=== PATIENT | male | born 1965 | race Caucasian/White ===

== ENCOUNTER 2017-07-10 20:14 | Emergency (ER) | payer OTHER ==
[~2017-07-10] VITALS: Ht 170.2 cm; Wt 90.7 kg
[2017-07-10 21:05] LABS: Basophils # (auto) 0.2 uL; CONDITION Y; Eosinophils # (auto) 0.3 uL; Hematocrit 43.2 % (41.0-53.0); Hemoglobin 14.7 g/dL (13.5-17.5); Lymphocytes # (auto) 2.8 uL; Lymphocytes % (auto) 33.2 % (10.0-50.0); Mean Corpuscular Hemoglobin 33.7 pg (28.0-32.0); Mean Corpuscular Volume 99.1 fL (80.0-100.0); Monocytes # (auto) 1.1 uL; Monocytes % (auto) 13.2 % (0.0-12.0); Neutrophils # (auto) 4.1 uL; Neutrophils % (auto) 48.6 % (37.0-80.0); Platelet Count (auto) 230 10^3/uL (140-450); Red Cell Distribution Width 14.3 % (11.6-16.0); White Blood Cell 8.4 10^3/uL (4.4-10.8)
[2017-07-10 21:22] LABS: BUN/Creatinine Ratio 13.2; Magnesium 2.2 mg/dL (1.6-2.6); Potassium 3.4 mmol/L (3.5-5.1)
[2017-07-10 21:25] LABS: Bilirubin, Total 0.6 mg/dL (0.2-1.0); Total Protein 7.6 g/dL (6.4-8.2)
[2017-07-10 21:31] LABS: B-Type Natriuretic Peptide 112.98 pg/mL (0-100); Temperature: 23.3 C (20.0-25.0)
[2017-07-11] MEDS ORDERED: SODIUM CHLORIDE 0.9% 1,000 ML IV ONE (00:45)
[2017-07-11] MEDS ORDERED: THIAMINE HCL 100 MG/ML 2ML VIAL IV ONE (00:45)
[2017-07-11] MEDS ORDERED: cefTRIAXone 1GM/50ML D5W 50 ML IV ONE (00:45)
[2017-07-11] MEDS ORDERED: TETANUS-DIPTH-ACEL PERTUSSIS 0.5ML SYRG IM ONE (00:45)
[2017-07-11 02:13] VITALS: BP 144/91
[2017-07-11 04:24] LABS: Urine RBC None Seen /hpf (0 - 3)
[2017-07-11 04:39] LABS: Urine Bilirubin Negative (Negative); Urine Blood Negative /uL (Negative); Urine Color Yellow (Yellow); Urine Glucose Normal (Normal); Urine Ketone Negative (Negative); Urine Nitrite Negative (Negative); Urine Urobilinogen Normal (Negative)
== END 2017-07-11 04:25 | disposition home or self-care (01) ==
LOC: ER 20:14 → EDBD 20:14 → ER 07-11 04:25
DX: S00.83XA Contusion of other part of head, initial encounter (principal); G92 Toxic encephalopathy; F10.129 Alcohol abuse with intoxication, unspecified; F17.210 Nicotine dependence, cigarettes, uncomplicated; I11.0 Hypertensive heart disease with heart failure; I50.9 Heart failure, unspecified; Z23 Encounter for immunization; W20.8XXA Other cause of strike by thrown, projected or falling object, initial encounter; Y93.89 Activity, other specified; Y99.8 Other external cause status; Y92.89 Other specified places as the place of occurrence of the external cause
CPT/HCPCS: 36415; 70450; 70486; 80053; 80320; 81001; 83735; 83880; 85025; 90471; 90715; 93005; 96365; 96375; 99285; J0696; J3411; J7030

== ENCOUNTER 2017-11-11 14:50 | Inpatient (IN) | payer OTHER ==
[~2017-11-11] VITALS: Ht 170.2 cm; Wt 102.6 kg
[2017-11-11 16:40] LABS: Basophils # (auto) 0.1 uL; Eosinophils # (auto) 0.3 uL; Monocytes # (auto) 0.9 uL
[2017-11-11 16:41] LABS: Eosinophils % (auto) 3.4 % (0.0-7.0); Hematocrit 37.6 % (41.0-53.0); Lymphocytes % (auto) 24.7 % (10.0-50.0); Mean Corpuscular Hemoglobin 35.4 pg (28.0-32.0); Mean Corpuscular Hgb Conc. 34.7 g/dL (32.0-36.0); Monocytes % (auto) 10.9 % (0.0-12.0); Neutrophils # (auto) 4.8 uL; Nucleated Red Blood Cells % 0.1 %; Platelet Count (auto) 190 10^3/uL (140-450); Red Blood Cells 3.68 10^6/uL (4.5-5.90); Red Cell Distribution Width 13.4 % (11.8-14.3)
[2017-11-11 17:12] LABS: Alanine Aminotransferase 90 U/L (16-61); Albumin 3.3 g/dL (3.4-5.0); Alkaline Phosphatase 66 U/L (45-117); Anion Gap 10 (5-15); Aspartate Aminotransferase 55 U/L (15-37); BUN/Creatinine Ratio 17.9; Bilirubin, Total 0.6 mg/dL (0.2-1.0); Blood Urea Nitrogen 12 mg/dL (7-18); Calcium 8.1 mg/dL (8.5-10.1); Carbon Dioxide 23 mmol/L (21-32); Chloride 101 mmol/L (98-107); GFR African American 160 mL/min; GFR Non-African American 132 mL/min; Glucose 103 mg/dL (74-106); Magnesium 2.2 mg/dL (1.6-2.6); Sodium 134 mmol/L (136-145); Total Protein 7.6 g/dL (6.4-8.2)
[2017-11-12] MEDS: SODIUM CHLORIDE 0.9% 1,000 ML IV SCH ×3 (15:42→23:42)
[2017-11-12] MEDS ORDERED: MORPHINE SULFATE 4 MG/ML SYR/VIAL IV ONE (15:45)
[2017-11-12] MEDS ORDERED: ONDANSETRON HCL 4 MG/2 ML VIAL IV PRN (15:45)
[2017-11-12] MEDS ORDERED: FUROSEMIDE 20 MG TAB PO ONE (16:30)
[2017-11-12] MEDS ORDERED: CARVEDILOL 12.5 MG TAB PO ONE (16:30)
[2017-11-12 17:44] VITALS: BP 137/87
[2017-11-12] MEDS ORDERED: CARV12.544 PO (18:56)
[2017-11-12] MEDS ORDERED: VALS40TA2 PO (18:56)
[2017-11-12] MEDS ORDERED: FURO40TA4 PO (18:56)
[2017-11-12] MEDS ORDERED: SPIR25TA89 PO (18:56)
[2017-11-12 22:04] VITALS: BP 123/74
[2017-11-13] VITALS (8 sets, daily range): BP systolic 98–128; BP diastolic 66–80
[2017-11-13] MEDS: MORPHINE SULFATE 4 MG/ML SYR/VIAL IV PRN ×3 (05:55→19:02)
[2017-11-13 06:45] LABS: Eosinophils # (auto) 0.2 uL; Mean Corpuscular Volume 102.4 fL (80.0-100.0); Monocytes # (auto) 1.4 uL; Red Cell Distribution Width 13.3 % (11.8-14.3)
[2017-11-13 06:50] LABS: Basophils # (auto) 0.1 uL; Basophils % (auto) 0.7 % (0.0-2.0); Eosinophils % (auto) 2.7 % (0.0-7.0); Hematocrit 35.5 % (41.0-53.0); Hemoglobin 12.5 g/dL (13.5-17.5); Lymphocytes # (auto) 1.4 uL; Lymphocytes % (auto) 17.1 % (10.0-50.0); Mean Corpuscular Hemoglobin 36.2 pg (28.0-32.0); Mean Corpuscular Hgb Conc. 35.3 g/dL (32.0-36.0); Monocytes % (auto) 16.4 % (0.0-12.0); Neutrophils # (auto) 5.3 uL; Neutrophils % (auto) 63.1 % (37.0-80.0); Platelet Count (auto) 182 10^3/uL (140-450); Red Blood Cells 3.47 10^6/uL (4.5-5.90); White Blood Cell 8.4 10^3/uL (4.4-10.8)
[2017-11-13 07:17] LABS: Albumin 3.2 g/dL (3.4-5.0); BUN/Creatinine Ratio 14.5; Bilirubin, Total 1.8 mg/dL (0.2-1.0); Calcium 8.7 mg/dL (8.5-10.1); Potassium 3.7 mmol/L (3.5-5.1); Total Protein 7.5 g/dL (6.4-8.2)
[2017-11-13] MEDS: VALSARTAN 80 MG TAB PO SCH (10:16)
[2017-11-13] MEDS: FUROSEMIDE 20 MG TAB PO SCH (10:16)
[2017-11-13] MEDS: CARVEDILOL 12.5 MG TAB PO SCH ×2 (10:17→22:10)
[2017-11-13] MEDS: SPIRONOLACTONE 25 MG TAB PO SCH (10:17)
[2017-11-14 04:50] VITALS: BP 120/61
[2017-11-14] MEDS: MORPHINE SULFATE 4 MG/ML SYR/VIAL IV PRN ×3 (05:32→18:22)
[2017-11-14 09:00] VITALS: BP 101/72
[2017-11-14] MEDS: SPIRONOLACTONE 25 MG TAB PO SCH (09:51)
[2017-11-14] MEDS: FUROSEMIDE 20 MG TAB PO SCH (09:52)
[2017-11-14] MEDS: CARVEDILOL 12.5 MG TAB PO SCH ×2 (09:52→21:34)
[2017-11-14] MEDS: VALSARTAN 80 MG TAB PO SCH (09:52)
[2017-11-14 12:00] VITALS: BP 113/77
[2017-11-14 17:00] VITALS: BP 112/78
[2017-11-14 21:52] VITALS: BP 104/77
[2017-11-15] MEDS: MORPHINE SULFATE 4 MG/ML SYR/VIAL IV PRN ×4 (00:25→19:47)
[2017-11-15 05:14] VITALS: BP 112/78
[2017-11-15] MEDS: VALSARTAN 80 MG TAB PO SCH (09:38)
[2017-11-15] MEDS: FUROSEMIDE 20 MG TAB PO SCH (09:39)
[2017-11-15] MEDS: CARVEDILOL 12.5 MG TAB PO SCH ×2 (09:39→22:00)
[2017-11-15] MEDS: SPIRONOLACTONE 25 MG TAB PO SCH (09:39)
[2017-11-15 09:47] VITALS: BP 115/80
[2017-11-15 13:05] VITALS: BP 107/72
[2017-11-15 14:44] LABS: INR 1.05 (0.9-1.15); Partial Thromboplastin Time 26.2 sec (22.64-33.71); Prothrombin Time 11.5 sec (9.37-12.3)
[2017-11-15 17:10] VITALS: BP 116/74
[2017-11-16] MEDS: MORPHINE SULFATE 4 MG/ML SYR/VIAL IV PRN ×2 (01:53→20:25)
[2017-11-16 05:13] VITALS: BP 108/69
[2017-11-16 07:58] VITALS: BP 113/68
[2017-11-16] MEDS ORDERED: MIDAZOLAM HCL 1MG/1ML-2 ML VIAL ONE ×2 (08:35→09:51)
[2017-11-16] MEDS ORDERED: fentaNYL CITRATE 100 MCG/2 ML VL ONE (08:35)
[2017-11-16] MEDS ORDERED: PROPOFOL 10 MG/ML 20 ML IV ONE ×2 (08:36→10:50)
[2017-11-16] MEDS ORDERED: ONDANSETRON HCL 4 MG/2 ML VIAL ONE (08:36)
[2017-11-16] MEDS ORDERED: SODIUM CHLORIDE LOCK 30 ML ONE (08:36)
[2017-11-16] MEDS ORDERED: fentaNYL CITRATE 5 ML ONE (08:36)
[2017-11-16] MEDS ORDERED: MEPERIDINE HCL (50 MG/ML) 1 ML VIAL ONE (08:37)
[2017-11-16] MEDS ORDERED: ceFAZolin 1GM/50ML 100 ML IV ONE (09:20)
[2017-11-16] MEDS ORDERED: ROPIVACAINE 0.5% (5MG/ML) 20ML AMPULE IJ ONE (09:47)
[2017-11-16] MEDS ORDERED: LIDOCAINE W/ EPINEPHRINE 2% INJ 20ML VIAL ONE (09:51)
[2017-11-16] MEDS ORDERED: HYDROmorphone HCL 2 MG/ML VL IV PRN (12:15)
[2017-11-16] MEDS ORDERED: METOCLOPRAMIDE HCL 5MG/ml INJ 2ml VIAL IV ONE (12:15)
[2017-11-16] MEDS ORDERED: KETOROLAC TROMETH 30 MG/ML 1ML VIAL IV ONE (12:15)
[2017-11-16 14:56] VITALS: BP 102/71
[2017-11-16] MEDS: SPIRONOLACTONE 25 MG TAB PO SCH (16:48)
[2017-11-16] MEDS: CARVEDILOL 12.5 MG TAB PO SCH ×2 (16:49→22:00)
[2017-11-16] MEDS: FUROSEMIDE 20 MG TAB PO SCH (16:50)
[2017-11-16] MEDS: VALSARTAN 80 MG TAB PO SCH (16:50)
[2017-11-16 17:18] VITALS: BP 115/73
[2017-11-16] MEDS: ceFAZolin 1GM/50ML 50 ML IV SCH ×2 (18:42→23:44)
[2017-11-16 21:47] VITALS: BP 118/78
[2017-11-17] MEDS: MORPHINE SULFATE 4 MG/ML SYR/VIAL IV PRN ×4 (02:09→21:50)
[2017-11-17 05:21] VITALS: BP 108/65
[2017-11-17] MEDS: ceFAZolin 1GM/50ML 50 ML IV SCH ×3 (05:43→18:25)
[2017-11-17 10:22] VITALS: BP 114/71
[2017-11-17] MEDS: SPIRONOLACTONE 25 MG TAB PO SCH (11:36)
[2017-11-17] MEDS: CARVEDILOL 12.5 MG TAB PO SCH ×2 (11:37→21:50)
[2017-11-17] MEDS: FUROSEMIDE 20 MG TAB PO SCH (11:38)
[2017-11-17] MEDS: VALSARTAN 80 MG TAB PO SCH (11:38)
[2017-11-17 12:26] VITALS: BP 126/79
[2017-11-17] MEDS: HYDROcodone-ACET 10/325MG TAB PO PRN ×2 (12:48→19:47)
[2017-11-17 22:02] VITALS: BP 108/64
[2017-11-18] MEDS: ceFAZolin 1GM/50ML 50 ML IV SCH ×3 (00:08→11:15)
[2017-11-18] MEDS: MORPHINE SULFATE 4 MG/ML SYR/VIAL IV PRN ×3 (03:53→18:11)
[2017-11-18 05:03] VITALS: BP 109/65
[2017-11-18] MEDS ORDERED: FLEET ENEMA(ADULT) 135 ML PR ONE (08:30)
[2017-11-18] MEDS ORDERED: LACTULOSE 20Gm/30ML SOLN PO ONE (08:30)
[2017-11-18] MEDS: HYDROcodone-ACET 10/325MG TAB PO PRN ×2 (08:48→20:42)
[2017-11-18 09:00] VITALS: BP 123/75
[2017-11-18] MEDS: FUROSEMIDE 20 MG TAB PO SCH (10:09)
[2017-11-18] MEDS: VALSARTAN 80 MG TAB PO SCH (10:10)
[2017-11-18] MEDS: SPIRONOLACTONE 25 MG TAB PO SCH (10:10)
[2017-11-18] MEDS: CARVEDILOL 12.5 MG TAB PO SCH ×2 (10:11→22:26)
[2017-11-18 13:00] VITALS: BP 115/53
[2017-11-18 17:23] VITALS: BP 98/64
[2017-11-18 22:00] VITALS: BP 117/67
[2017-11-19] MEDS: MORPHINE SULFATE 4 MG/ML SYR/VIAL IV PRN (00:09)
[2017-11-19 05:00] VITALS: BP 106/59
[2017-11-19] MEDS: HYDROcodone-ACET 10/325MG TAB PO PRN ×3 (05:01→22:15)
[2017-11-19] MEDS: MORPHINE SULFATE 10 MG/ML INJ 1ML SDV IV PRN ×2 (08:33→19:21)
[2017-11-19 09:00] VITALS: BP 108/57
[2017-11-19] MEDS: VALSARTAN 80 MG TAB PO SCH (09:16)
[2017-11-19] MEDS: SPIRONOLACTONE 25 MG TAB PO SCH (09:17)
[2017-11-19] MEDS: FUROSEMIDE 20 MG TAB PO SCH (09:17)
[2017-11-19] MEDS: CARVEDILOL 12.5 MG TAB PO SCH ×2 (09:17→21:42)
[2017-11-19 13:00] VITALS: BP 85/59
[2017-11-19 18:27] VITALS: BP 122/71
[2017-11-19 22:00] VITALS: BP 106/60
[2017-11-20] MEDS: HYDROcodone-ACET 10/325MG TAB PO PRN ×3 (03:07→20:43)
[2017-11-20 05:00] VITALS: BP 106/65
[2017-11-20 07:30] VITALS: BP 106/60
[2017-11-20 08:00] VITALS: BP 110/66
[2017-11-20] MEDS: SPIRONOLACTONE 25 MG TAB PO SCH (09:12)
[2017-11-20] MEDS: FUROSEMIDE 20 MG TAB PO SCH (09:13)
[2017-11-20] MEDS: VALSARTAN 80 MG TAB PO SCH (09:13)
[2017-11-20] MEDS: CARVEDILOL 12.5 MG TAB PO SCH ×2 (09:14→22:05)
[2017-11-20] MEDS: MORPHINE SULFATE 10 MG/ML INJ 1ML SDV IV PRN ×2 (09:16→17:34)
[2017-11-20 12:00] VITALS: BP 103/60
[2017-11-20 17:00] VITALS: BP 117/72
[2017-11-20 23:20] VITALS: BP 113/66
[2017-11-21] MEDS: HYDROcodone-ACET 10/325MG TAB PO PRN ×3 (04:46→18:53)
[2017-11-21 05:44] VITALS: BP 124/72
[2017-11-21 09:00] VITALS: BP 113/79
[2017-11-21] MEDS: MORPHINE SULFATE 10 MG/ML INJ 1ML SDV IV PRN (09:08)
[2017-11-21] MEDS: SPIRONOLACTONE 25 MG TAB PO SCH (09:08)
[2017-11-21] MEDS: CARVEDILOL 12.5 MG TAB PO SCH ×2 (09:09→21:56)
[2017-11-21] MEDS: FUROSEMIDE 20 MG TAB PO SCH (09:10)
[2017-11-21] MEDS: VALSARTAN 80 MG TAB PO SCH (09:22)
[2017-11-21 13:00] VITALS: BP 104/69
[2017-11-21 16:43] VITALS: BP 114/46
[2017-11-21 22:04] VITALS: BP 107/64
[2017-11-22] MEDS: MORPHINE SULFATE 10 MG/ML INJ 1ML SDV IV PRN ×2 (04:55→21:43)
[2017-11-22 05:01] VITALS: BP 129/80
[2017-11-22 09:12] VITALS: BP 116/72
[2017-11-22] MEDS ORDERED: ceFAZolin 1GM/50ML 50 ML IV ONE (11:39)
[2017-11-22 13:00] VITALS: BP 107/66
[2017-11-22] MEDS: SPIRONOLACTONE 25 MG TAB PO SCH (13:43)
[2017-11-22] MEDS: CARVEDILOL 12.5 MG TAB PO SCH ×4 (14:07→21:42)
[2017-11-22] MEDS: FUROSEMIDE 20 MG TAB PO SCH (15:25)
[2017-11-22] MEDS: VALSARTAN 80 MG TAB PO SCH (15:25)
[2017-11-22 16:14] VITALS: BP 113/67
[2017-11-22] MEDS: HYDROcodone-ACET 10/325MG TAB PO PRN (16:45)
[2017-11-22 22:00] VITALS: BP 100/69
[2017-11-23] MEDS: HYDROcodone-ACET 10/325MG TAB PO PRN ×4 (01:30→23:28)
[2017-11-23] MEDS: MORPHINE SULFATE 10 MG/ML INJ 1ML SDV IV PRN ×2 (03:43→19:58)
[2017-11-23 05:52] VITALS: BP 102/58
[2017-11-23 07:30] VITALS: BP 105/73
[2017-11-23 09:00] VITALS: BP 120/77
[2017-11-23] MEDS: FUROSEMIDE 20 MG TAB PO SCH (09:23)
[2017-11-23] MEDS: SPIRONOLACTONE 25 MG TAB PO SCH (09:24)
[2017-11-23] MEDS: VALSARTAN 80 MG TAB PO SCH (09:24)
[2017-11-23] MEDS: CARVEDILOL 12.5 MG TAB PO SCH ×2 (09:24→22:01)
[2017-11-23 12:56] VITALS: BP 110/78
[2017-11-23 17:00] VITALS: BP 98/68
[2017-11-23 22:00] VITALS: BP 104/60
[2017-11-24] VITALS (7 sets, daily range): BP systolic 93–117; BP diastolic 57–77
[2017-11-24] MEDS: MORPHINE SULFATE 10 MG/ML INJ 1ML SDV IV PRN ×3 (02:24→20:16)
[2017-11-24] MEDS: SPIRONOLACTONE 25 MG TAB PO SCH (10:00)
[2017-11-24] MEDS: CARVEDILOL 12.5 MG TAB PO SCH ×2 (10:00→22:22)
[2017-11-24] MEDS: FUROSEMIDE 20 MG TAB PO SCH (10:00)
[2017-11-24] MEDS: VALSARTAN 80 MG TAB PO SCH (10:00)
[2017-11-24] MEDS: HYDROcodone-ACET 10/325MG TAB PO PRN (23:33)
[2017-11-25] MEDS: HYDROcodone-ACET 10/325MG TAB PO PRN ×3 (04:50→18:11)
[2017-11-25 05:01] VITALS: BP_SYST 105; BP_SYST 98; BP_DIAS 61; BP_DIAS 69
[2017-11-25 09:00] VITALS: BP 105/62
[2017-11-25] MEDS ORDERED: LACTULOSE 20Gm/30ML SOLN PO ONE (09:30)
[2017-11-25] MEDS: SPIRONOLACTONE 25 MG TAB PO SCH (09:46)
[2017-11-25] MEDS: VALSARTAN 80 MG TAB PO SCH (09:47)
[2017-11-25] MEDS: CARVEDILOL 12.5 MG TAB PO SCH ×2 (09:47→22:00)
[2017-11-25] MEDS: FUROSEMIDE 20 MG TAB PO SCH (09:48)
[2017-11-25 12:21] VITALS: BP 107/63
[2017-11-25] MEDS: MORPHINE SULFATE 10 MG/ML INJ 1ML SDV IV PRN ×2 (13:28→22:41)
[2017-11-25 18:03] VITALS: BP 98/67
[2017-11-25 20:00] VITALS: BP 101/72
[2017-11-25 22:00] VITALS: BP 101/72
[2017-11-26] VITALS (7 sets, daily range): BP systolic 93–179; BP diastolic 60–115
[2017-11-26] MEDS: MORPHINE SULFATE 10 MG/ML INJ 1ML SDV IV PRN ×3 (06:36→18:31)
[2017-11-26] MEDS: HYDROcodone-ACET 10/325MG TAB PO PRN ×2 (08:39→21:15)
[2017-11-26] MEDS: CARVEDILOL 12.5 MG TAB PO SCH ×2 (09:31→22:00)
[2017-11-26] MEDS: VALSARTAN 80 MG TAB PO SCH (09:31)
[2017-11-26] MEDS: SPIRONOLACTONE 25 MG TAB PO SCH (09:31)
[2017-11-26] MEDS: FUROSEMIDE 20 MG TAB PO SCH (09:32)
[2017-11-27] MEDS: MORPHINE SULFATE 10 MG/ML INJ 1ML SDV IV PRN ×4 (01:04→23:27)
[2017-11-27 05:40] VITALS: BP 109/65
[2017-11-27] MEDS: HYDROcodone-ACET 10/325MG TAB PO PRN ×3 (06:38→19:55)
[2017-11-27 08:55] VITALS: BP 99/49
[2017-11-27] MEDS: SPIRONOLACTONE 25 MG TAB PO SCH (09:59)
[2017-11-27] MEDS: CARVEDILOL 12.5 MG TAB PO SCH ×2 (10:00→21:48)
[2017-11-27] MEDS: VALSARTAN 80 MG TAB PO SCH (10:00)
[2017-11-27] MEDS: FUROSEMIDE 20 MG TAB PO SCH (10:00)
[2017-11-27 12:21] VITALS: BP 113/75
[2017-11-27 16:28] VITALS: BP 109/73
[2017-11-27 20:00] VITALS: BP 105/77
[2017-11-27 22:15] VITALS: BP 105/77
[2017-11-28] MEDS: HYDROcodone-ACET 10/325MG TAB PO PRN ×3 (04:11→20:00)
[2017-11-28 04:46] VITALS: BP 117/80
[2017-11-28] MEDS: MORPHINE SULFATE 10 MG/ML INJ 1ML SDV IV PRN ×2 (08:23→17:18)
[2017-11-28] MEDS: LACTULOSE 20Gm/30ML SOLN PO PRN (08:27)
[2017-11-28 09:00] VITALS: BP 100/64
[2017-11-28] MEDS: VALSARTAN 80 MG TAB PO SCH (10:00)
[2017-11-28] MEDS: SPIRONOLACTONE 25 MG TAB PO SCH (10:00)
[2017-11-28] MEDS: FUROSEMIDE 20 MG TAB PO SCH (10:00)
[2017-11-28] MEDS: CARVEDILOL 12.5 MG TAB PO SCH ×2 (10:00→21:32)
[2017-11-28 13:00] VITALS: BP 94/52
[2017-11-28 17:00] VITALS: BP 126/91
[2017-11-28 22:39] VITALS: BP 111/73
[2017-11-29] MEDS: MORPHINE SULFATE 10 MG/ML INJ 1ML SDV IV PRN ×4 (00:15→20:14)
[2017-11-29 04:28] VITALS: BP 122/94
[2017-11-29] MEDS: HYDROcodone-ACET 10/325MG TAB PO PRN ×3 (05:39→23:00)
[2017-11-29 08:00] VITALS: BP 132/83
[2017-11-29] MEDS: FUROSEMIDE 20 MG TAB PO SCH (09:30)
[2017-11-29] MEDS: CARVEDILOL 12.5 MG TAB PO SCH ×2 (09:30→20:14)
[2017-11-29] MEDS: SPIRONOLACTONE 25 MG TAB PO SCH (09:31)
[2017-11-29] MEDS: VALSARTAN 80 MG TAB PO SCH (09:31)
[2017-11-29 12:00] VITALS: BP 114/74
[2017-11-29 16:46] VITALS: BP 108/70
[2017-11-29 22:09] VITALS: BP 118/70
[2017-11-30] MEDS: MORPHINE SULFATE 10 MG/ML INJ 1ML SDV IV PRN ×3 (03:33→18:50)
[2017-11-30 04:26] VITALS: BP 130/90
[2017-11-30] MEDS: HYDROcodone-ACET 10/325MG TAB PO PRN ×3 (08:10→21:47)
[2017-11-30 08:12] VITALS: BP 159/97
[2017-11-30 09:00] VITALS: BP 159/97
[2017-11-30] MEDS: VALSARTAN 80 MG TAB PO SCH (09:17)
[2017-11-30] MEDS: SPIRONOLACTONE 25 MG TAB PO SCH (09:18)
[2017-11-30] MEDS: FUROSEMIDE 20 MG TAB PO SCH (09:18)
[2017-11-30] MEDS: CARVEDILOL 12.5 MG TAB PO SCH ×2 (09:18→21:47)
[2017-11-30] MEDS: LACTULOSE 20Gm/30ML SOLN PO PRN (09:22)
[2017-11-30 13:00] VITALS: BP 104/69
[2017-11-30 17:00] VITALS: BP 103/67
[2017-11-30 22:00] VITALS: BP 124/74
[2017-12-01] MEDS: MORPHINE SULFATE 10 MG/ML INJ 1ML SDV IV PRN ×4 (00:57→22:13)
[2017-12-01 05:44] VITALS: BP 103/67
[2017-12-01 09:00] VITALS: BP 129/78
[2017-12-01] MEDS: CARVEDILOL 12.5 MG TAB PO SCH (11:37)
[2017-12-01] MEDS: VALSARTAN 80 MG TAB PO SCH (11:37)
[2017-12-01] MEDS: SPIRONOLACTONE 25 MG TAB PO SCH (11:37)
[2017-12-01] MEDS: FUROSEMIDE 20 MG TAB PO SCH (11:38)
[2017-12-01 12:00] VITALS: BP 112/78
[2017-12-01] MEDS: HYDROcodone-ACET 10/325MG TAB PO PRN ×2 (13:31→19:33)
[2017-12-01 17:01] VITALS: BP 99/71
[2017-12-01 20:30] VITALS: BP 95/57
[2017-12-02] MEDS: HYDROcodone-ACET 10/325MG TAB PO PRN ×2 (03:38→08:39)
[2017-12-02] MEDS: MORPHINE SULFATE 10 MG/ML INJ 1ML SDV IV PRN ×3 (04:38→19:54)
[2017-12-02 05:57] VITALS: BP 116/62
[2017-12-02 07:41] VITALS: BP 108/70
[2017-12-02] MEDS: LACTULOSE 20Gm/30ML SOLN PO PRN (10:17)
[2017-12-02 12:15] VITALS: BP 105/68
[2017-12-02 17:03] VITALS: BP 115/73
[2017-12-02 20:00] VITALS: BP 122/72
[2017-12-02 22:38] VITALS: BP 122/72
[2017-12-03] MEDS: HYDROcodone-ACET 10/325MG TAB PO PRN ×3 (00:02→21:30)
[2017-12-03 04:47] VITALS: BP 115/84
[2017-12-03 09:19] VITALS: BP 126/76
[2017-12-03] MEDS: MORPHINE SULFATE 10 MG/ML INJ 1ML SDV IV PRN ×2 (10:57→18:45)
[2017-12-03] MEDS: LACTULOSE 20Gm/30ML SOLN PO PRN (11:03)
[2017-12-03 12:10] VITALS: BP 135/80
[2017-12-03 17:05] VITALS: BP 141/94
[2017-12-03 23:41] VITALS: BP 129/92
[2017-12-04] MEDS: MORPHINE SULFATE 10 MG/ML INJ 1ML SDV IV PRN ×3 (01:07→18:43)
[2017-12-04] MEDS: HYDROcodone-ACET 10/325MG TAB PO PRN ×3 (03:46→20:10)
[2017-12-04 05:40] VITALS: BP 122/85
[2017-12-04 09:00] VITALS: BP 134/89
[2017-12-04 13:00] VITALS: BP 133/93
[2017-12-04] MEDS ORDERED: FUROSEMIDE 20 MG TAB PO ONE (13:00)
[2017-12-04 17:00] VITALS: BP 121/83
[2017-12-04 20:00] VITALS: BP 123/79
[2017-12-04 22:00] VITALS: BP 123/79
[2017-12-05] VITALS (7 sets, daily range): BP systolic 116–132; BP diastolic 76–86
[2017-12-05] MEDS: MORPHINE SULFATE 10 MG/ML INJ 1ML SDV IV PRN ×3 (00:47→17:05)
[2017-12-05] MEDS: HYDROcodone-ACET 10/325MG TAB PO PRN ×3 (05:53→18:52)
[2017-12-05] MEDS: LACTULOSE 20Gm/30ML SOLN PO PRN (09:49)
[2017-12-05] MEDS ORDERED: FUROSEMIDE 20 MG TAB PO SCH (10:00)
[2017-12-06] VITALS (7 sets, daily range): BP systolic 125–149; BP diastolic 73–98
[2017-12-06] MEDS: MORPHINE SULFATE 10 MG/ML INJ 1ML SDV IV PRN ×3 (00:04→20:17)
[2017-12-06] MEDS ORDERED: FUROSEMIDE 40 MG TAB PO SCH (10:00)
[2017-12-06] MEDS: HYDROcodone-ACET 10/325MG TAB PO PRN ×2 (14:50→18:48)
[2017-12-07 04:44] VITALS: BP 124/80
[2017-12-07] MEDS: MORPHINE SULFATE 10 MG/ML INJ 1ML SDV IV PRN ×3 (05:17→22:37)
[2017-12-07] MEDS: LACTULOSE 20Gm/30ML SOLN PO PRN (08:05)
[2017-12-07 08:21] VITALS: BP 134/92
[2017-12-07] MEDS: FUROSEMIDE 40 MG TAB PO SCH (09:51)
[2017-12-07] MEDS: HYDROcodone-ACET 10/325MG TAB PO PRN ×2 (11:23→19:05)
[2017-12-07 12:44] VITALS: BP 145/58
[2017-12-07 17:21] VITALS: BP 146/99
[2017-12-07 20:00] VITALS: BP 134/92
[2017-12-07 22:00] VITALS: BP 142/102
[2017-12-08 05:30] VITALS: BP 133/79
[2017-12-08] MEDS: MORPHINE SULFATE 10 MG/ML INJ 1ML SDV IV PRN ×2 (06:18→17:58)
[2017-12-08 07:30] VITALS: BP 137/88
[2017-12-08 08:31] LABS: Basophils # (auto) 0.1 uL; Eosinophils # (auto) 0.4 uL; Hematocrit 37.1 % (41.0-53.0); Mean Corpuscular Hgb Conc. 34.4 g/dL (32.0-36.0); Nucleated Red Blood Cells % 0.4 %; Red Blood Cells 3.68 10^6/uL (4.5-5.90); Red Cell Distribution Width 12.5 % (11.8-14.3)
[2017-12-08 08:32] LABS: Eosinophils % (auto) 4.5 % (0.0-7.0); Hemoglobin 12.7 g/dL (13.5-17.5); Lymphocytes # (auto) 2.1 uL; Lymphocytes % (auto) 25.9 % (10.0-50.0); Mean Corpuscular Hemoglobin 34.6 pg (28.0-32.0); Mean Corpuscular Volume 100.7 fL (80.0-100.0); Monocytes # (auto) 1.1 uL; Monocytes % (auto) 13.1 % (0.0-12.0); Neutrophils # (auto) 4.5 uL; Neutrophils % (auto) 55.5 % (37.0-80.0); Platelet Count (auto) 209 10^3/uL (140-450)
[2017-12-08 08:36] LABS: INR 1.05 (0.9-1.15); Partial Thromboplastin Time 27.8 sec (22.64-33.71); Prothrombin Time 11.4 sec (9.37-12.3)
[2017-12-08 08:45] LABS: BUN/Creatinine Ratio 14.9; Calcium 8.6 mg/dL (8.5-10.1)
[2017-12-08 08:59] VITALS: BP 137/88
[2017-12-08 09:02] VITALS: BP 137/88
[2017-12-08] MEDS ORDERED: ceFAZolin 1GM/50ML 100 ML IV ONE (09:11)
[2017-12-08] MEDS ORDERED: ROCURONIUM 10MG/ML 10ML VIAL IV ONE (09:14)
[2017-12-08] MEDS ORDERED: SODIUM CHLORIDE LOCK 10 ML ONE (09:14)
[2017-12-08] MEDS ORDERED: PROPOFOL 10 MG/ML 20 ML IV ONE ×2 (09:14→10:01)
[2017-12-08] MEDS ORDERED: fentaNYL CITRATE 100 MCG/2 ML VL ONE (09:14)
[2017-12-08] MEDS ORDERED: MIDAZOLAM HCL 1MG/1ML-2 ML VIAL ONE (09:14)
[2017-12-08] MEDS ORDERED: ROPIVACAINE 0.5% (5MG/ML) 20ML AMPULE IJ ONE (09:18)
[2017-12-08] MEDS ORDERED: LIDOCAINE W/ EPINEPHRINE 2% INJ 20ML VIAL ONE (09:18)
[2017-12-08] MEDS ORDERED: ceFAZolin 1GM 2 GM in D5W 5% 100 ML IV ONE (09:40)
[2017-12-08] MEDS: FUROSEMIDE 40 MG TAB PO SCH (10:00)
[2017-12-08] MEDS ORDERED: ETOMIDATE (2MG/ML) 20ML VIAL IV ONE (10:02)
[2017-12-08] MEDS ORDERED: SUCCINYLCHOLINE CHLORIDE 20 MG/ML 10ML VIAL IV ONE (10:04)
[2017-12-08] MEDS ORDERED: ONDANSETRON HCL 4 MG/2 ML VIAL IV ONE (10:30)
[2017-12-08] MEDS ORDERED: hydrALAZINE HCL 20 MG/ML VL IV PRN (10:30)
[2017-12-08] MEDS ORDERED: NALOXONE HCL 0.4 MG/ML VIAL IV PRN (10:30)
[2017-12-08] MEDS ORDERED: HYDROmorphone HCL 2 MG/ML VL IV PRN (10:30)
[2017-12-08] MEDS ORDERED: METOCLOPRAMIDE HCL 5MG/ml INJ 2ml VIAL ONE (10:50)
[2017-12-08] MEDS ORDERED: KETOROLAC TROMETH 30 MG/ML 1ML VIAL ONE (11:19)
[2017-12-08] MEDS: HYDROmorphone HCL 2 MG/ML VL IV PRN ×2 (12:09→12:19)
[2017-12-08] MEDS ORDERED: MEPERIDINE HCL (25 MG/ML) 1ML VIAL ONE (12:49)
[2017-12-08] MEDS ORDERED: MEPERIDINE HCL (25 MG/ML) 1ML VIAL IM ONE (13:00)
[2017-12-08 17:26] VITALS: BP 136/72
[2017-12-08] MEDS: HYDROcodone-ACET 10/325MG TAB PO PRN (20:49)
[2017-12-08 21:45] VITALS: BP 137/89
[2017-12-09] MEDS: MORPHINE SULFATE 10 MG/ML INJ 1ML SDV IV PRN ×4 (00:23→18:38)
[2017-12-09] MEDS: HYDROcodone-ACET 10/325MG TAB PO PRN ×3 (03:01→15:47)
[2017-12-09 05:35] VITALS: BP 141/84
[2017-12-09 08:00] VITALS: BP 146/89
[2017-12-09 08:22] VITALS: BP 146/89
[2017-12-09] MEDS: FUROSEMIDE 40 MG TAB PO SCH (10:27)
[2017-12-09 12:58] VITALS: BP 150/92
[2017-12-09 17:19] VITALS: BP 154/83
[2017-12-09 22:00] VITALS: BP 132/89
[2017-12-10] MEDS: MORPHINE SULFATE 10 MG/ML INJ 1ML SDV IV PRN ×4 (00:43→19:35)
[2017-12-10 05:00] VITALS: BP 150/82
[2017-12-10 09:10] VITALS: BP 152/86
[2017-12-10] MEDS: FUROSEMIDE 40 MG TAB PO SCH (09:50)
[2017-12-10 13:00] VITALS: BP 148/89
[2017-12-10 17:00] VITALS: BP 135/91
[2017-12-10 22:00] VITALS: BP 131/85
[2017-12-10] MEDS: HYDROcodone-ACET 10/325MG TAB PO PRN (23:29)
[2017-12-11] MEDS: MORPHINE SULFATE 10 MG/ML INJ 1ML SDV IV PRN ×4 (02:10→23:54)
[2017-12-11 05:00] VITALS: BP 135/80
[2017-12-11] MEDS: LACTULOSE 20Gm/30ML SOLN PO PRN (08:58)
[2017-12-11] MEDS: FUROSEMIDE 40 MG TAB PO SCH (08:58)
[2017-12-11 09:00] VITALS: BP 152/97
[2017-12-11 13:00] VITALS: BP 157/85
[2017-12-11] MEDS: HYDROcodone-ACET 10/325MG TAB PO PRN ×2 (13:23→21:33)
[2017-12-11 17:00] VITALS: BP 137/89
[2017-12-11 22:00] VITALS: BP 135/80
[2017-12-12 05:00] VITALS: BP 132/81
[2017-12-12] MEDS: MORPHINE SULFATE 10 MG/ML INJ 1ML SDV IV PRN ×3 (06:57→19:49)
[2017-12-12 08:00] VITALS: BP 144/86
[2017-12-12 08:31] VITALS: BP 144/86
[2017-12-12] MEDS: FUROSEMIDE 40 MG TAB PO SCH (09:38)
[2017-12-12 12:45] VITALS: BP 130/87
[2017-12-12] MEDS: HYDROcodone-ACET 10/325MG TAB PO PRN (15:57)
[2017-12-12 16:43] VITALS: BP 150/92
[2017-12-12 21:33] VITALS: BP 139/86
[2017-12-13] MEDS: HYDROcodone-ACET 10/325MG TAB PO PRN ×4 (00:25→17:22)
[2017-12-13] MEDS: MORPHINE SULFATE 10 MG/ML INJ 1ML SDV IV PRN ×3 (02:02→14:07)
[2017-12-13 04:56] VITALS: BP 139/96
[2017-12-13 08:37] VITALS: BP 140/93
[2017-12-13] MEDS: FUROSEMIDE 40 MG TAB PO SCH (10:07)
[2017-12-13 13:00] VITALS: BP 128/92
[2017-12-13 17:11] VITALS: BP 131/82
== END 2017-12-13 18:10 | DRG 488 ==
LOC: EDBD 14:50 → ER 14:50 → OVERFLOW 14:51 → ER 11-12 07:36 → CENTRAL 11-12 17:22
PROVIDERS: ADMIT Family Medicine; ATTEND Family Medicine
PROC: 0MBN0ZZ Excision of Right Knee Bursa and Ligament, Open Approach (ICD-10-PCS; 2017-11-16)
PROC: 0QSD04Z Reposition Right Patella with Internal Fixation Device, Open Approach (ICD-10-PCS; principal; 2017-11-16 10:35)
PROC: 0LQQ0ZZ Repair Right Knee Tendon, Open Approach (ICD-10-PCS; 2017-12-08)
PROC: 0SCC0ZZ Extirpation of Matter from Right Knee Joint, Open Approach (ICD-10-PCS; 2017-12-08)
DX: S82.031A Displaced transverse fracture of right patella, initial encounter for closed fracture (principal); E44.0 Moderate protein-calorie malnutrition; I11.0 Hypertensive heart disease with heart failure; I50.9 Heart failure, unspecified; E66.01 Morbid (severe) obesity due to excess calories; G62.9 Polyneuropathy, unspecified; S42.92XK Fracture of left shoulder girdle, part unspecified, subsequent encounter for fracture with nonunion; W01.0XXA Fall on same level from slipping, tripping and stumbling without subsequent striking against object, initial encounter; F17.210 Nicotine dependence, cigarettes, uncomplicated; M70.51 Other bursitis of knee, right knee; J45.909 Unspecified asthma, uncomplicated; Y92.89 Other specified places as the place of occurrence of the external cause; Y99.8 Other external cause status; S80.01XA Contusion of right knee, initial encounter; M19.90 Unspecified osteoarthritis, unspecified site; Z60.2 Problems related to living alone; Z91.19 Patient's noncompliance with other medical treatment and regimen; Z68.35 Body mass index [BMI] 35.0-35.9, adult; Y93.89 Activity, other specified; Z71.3 Dietary counseling and surveillance
CPT/HCPCS: 29505; 36415; 71010; 73560; 73562; 76000; 80048; 80053; 83735; 84484; 85025; 85610; 85730; 87070; 87075; 87081; 87205; 93005; 93306; 97110; 97116; 97163; 97530; C1769; J0330; J0690; J1885; J2250; J2405; J2704; J7060

== ENCOUNTER 2021-01-10 21:46 | Inpatient (IN) | payer OTHER, MEDICAID ==
[~2021-01-10] VITALS: Ht 170.2 cm; Wt 83.0 kg
[~2021-01-10 21:46] MED LIST: CARV12.544 PO; FURO40TA4 PO; SPIR25TA8 PO; VALS40TA2 PO
[2021-01-10 22:40] LABS: Basophils # (auto) 0.1 10 ^3/uL (0-0.2); Basophils % (auto) 0.6 % (0.0-2.0); Eosinophils # (auto) 0.1 10 ^3/uL (0-0.8); Eosinophils % (auto) 0.8 % (0.0-7.0); Hematocrit 42.8 % (41.0-53.0); Hemoglobin 14.7 g/dL (13.5-17.5); Lymphocytes # (auto) 1.2 10 ^3/uL (0.4-5.4); Lymphocytes % (auto) 9.7 % (10.0-50.0); Mean Corpuscular Hemoglobin 33.9 pg (28.0-32.0); Mean Corpuscular Hgb Conc. 34.2 g/dL (32.0-36.0); Mean Corpuscular Volume 99.1 fL (80.0-100.0); Monocytes # (auto) 1.4 10 ^3/uL (0-1.3); Neutrophils # (auto) 9.7 10 ^3/uL (1.6-8.6); Neutrophils % (auto) 77.9 % (37.0-80.0); Red Blood Cells 4.32 10^6/uL (4.5-5.90); Red Cell Distribution Width 13.2 % (11.8-14.3); White Blood Cell 12.4 10^3/uL (4.4-10.8)
[2021-01-10 22:58] LABS: BUN/Creatinine Ratio 14.3; Potassium 3.8 mmol/L (3.5-5.1)
[2021-01-10 23:03] LABS: Bilirubin, Total 0.4 mg/dL (0.2-1.0)
[2021-01-10 23:05] LABS: Partial Thromboplastin Time 30.8 sec (23.0-31.2)
[2021-01-11] VITALS (26 sets, daily range): BP systolic 86–147; BP diastolic 43–107
[2021-01-11] MEDS ORDERED: PIPERACILLIN-TAZOB 3.375GM 100 ML IV ONE (00:15)
[2021-01-11] MEDS ORDERED: VANCOMYCIN 1GM/250ML 250 ML IV ONE (00:15)
[2021-01-11 01:24] LABS: Urine Bacteria MANY /hpf (None Seen); Urine Blood Negative /uL (Negative); Urine Specific Gravity 1.007 (1.001-1.035); Urine WBC 9 /hpf (0 - 3)
[2021-01-11 01:32] LABS: Lactic Acid w/Reflex 3.2 mmol/L (0.4-2.0)
[2021-01-11] MEDS ORDERED: SODIUM CHLORIDE 0.9% 2,000 ML IV ONE (03:00)
[2021-01-11] MEDS ORDERED: MAGNESIUM SULFATE 1GM/100ML 100 ML IV ONE (10:15)
[2021-01-11] MEDS ORDERED: AMIODARONE HCL 150 MG in D5W 5% 100 ML IV ONE (10:15)
[2021-01-11] MEDS ORDERED: CARVEDILOL 3.125 MG TAB PO ONE ×2 (10:15→11:30)
[2021-01-11] MEDS ORDERED: DIGOXIN (250MCG/ML) 2 ML AMPULE IV ONE (10:15)
[2021-01-11] MEDS ORDERED: AMIODARONE HCL (50 MG/ ML) 3 ML VIAL IV ONE (10:23)
[2021-01-11] MEDS ORDERED: MORPHINE SULFATE INJECTION 2 MG/ML SYRG IV PRN (10:30)
[2021-01-11] MEDS ORDERED: ACETAMINOPHEN 325 MG TAB PO PRN (10:30)
[2021-01-11] MEDS ORDERED: AMIODARONE 450mg/250ml AE 250 ML IV SCH (10:30)
[2021-01-11] MEDS ORDERED: NITROGLYCERIN 0.4 MG SL TAB SL PRN (10:30)
[2021-01-11 10:57] LABS: Cholesterol 139 mg/dL (< 200)
[2021-01-11 11:01] LABS: HDL Cholesterol 71 mg/dL (40-59); LDL Cholesterol 61 mg/dL (< 100); Triglycerides 62 mg/dL (< 150)
[2021-01-11] MEDS ORDERED: SACUBITRIL-VALSARTAN 24mg/26mg TAB PO ONE (11:30)
[2021-01-11] MEDS ORDERED: FUROSEMIDE 40 MG/4 ML VIAL IV ONE (11:30)
[2021-01-11] MEDS ORDERED: FAMOTIDINE 20 MG TAB PO ONE (11:30)
[2021-01-11] MEDS ORDERED: FLORASTOR (S. BOULARDII) 250 MG CAP PO ONE (11:30)
[2021-01-11] MEDS ORDERED: VENLAFAXINE HCL 37.5mg XR cap PO ONE (11:30)
[2021-01-11] MEDS ORDERED: cefTRIAXone 1GM/50ML D5W 50 ML IV ONE (11:30)
[2021-01-11] MEDS: CLINDAMYCIN 300MG IV 50 ML IV SCH ×2 (14:41→21:40)
[2021-01-11] MEDS: AMIODARONE 450mg/250ml AE 250 ML IV SCH (17:34)
[2021-01-11] MEDS: FUROSEMIDE 40 MG/4 ML VIAL IV SCH (17:34)
[2021-01-11] MEDS ORDERED: BACL10TA PO (17:58)
[2021-01-11] MEDS ORDERED: ATOR20TA50 PO (17:59)
[2021-01-11] MEDS: CARVEDILOL 3.125 MG TAB PO SCH (22:00)
[2021-01-11] MEDS: VENLAFAXINE HCL 37.5mg XR cap PO SCH (22:00)
[2021-01-11] MEDS: SACUBITRIL-VALSARTAN 24mg/26mg TAB PO SCH (22:00)
[2021-01-11] MEDS: HYDROcodone-ACET 5/325MG TAB PO PRN (22:02)
[2021-01-12] VITALS (49 sets, daily range): BP systolic 91–131; BP diastolic 55–87
[2021-01-12 05:03] LABS: Basophils # (auto) 0.1 10 ^3/uL (0-0.2); Basophils % (auto) 0.8 % (0.0-2.0); Eosinophils # (auto) 0.2 10 ^3/uL (0-0.8); Hematocrit 35.1 % (41.0-53.0); Lymphocytes # (auto) 1.4 10 ^3/uL (0.4-5.4); Lymphocytes % (auto) 16.9 % (10.0-50.0); Mean Corpuscular Hemoglobin 33.3 pg (28.0-32.0); Mean Corpuscular Hgb Conc. 34.3 g/dL (32.0-36.0); Mean Corpuscular Volume 97.1 fL (80.0-100.0); Monocytes # (auto) 1.3 10 ^3/uL (0-1.3); Monocytes % (auto) 15.3 % (0.0-12.0); Neutrophils # (auto) 5.3 10 ^3/uL (1.6-8.6); Red Blood Cells 3.61 10^6/uL (4.5-5.90); Red Cell Distribution Width 13.1 % (11.8-14.3); White Blood Cell 8.2 10^3/uL (4.4-10.8)
[2021-01-12 05:22] LABS: Potassium 3.3 mmol/L (3.5-5.1)
[2021-01-12 05:25] LABS: BUN/Creatinine Ratio 18.5; Calcium 8.1 mg/dL (8.5-10.1)
[2021-01-12] MEDS: FUROSEMIDE 40 MG/4 ML VIAL IV SCH (05:58)
[2021-01-12] MEDS: CLINDAMYCIN 300MG IV 50 ML IV SCH ×3 (05:58→22:15)
[2021-01-12] MEDS ORDERED: POTASSIUM CHL 20 Meq TABLET PO ONE (07:45)
[2021-01-12] MEDS: AMIODARONE 450mg/250ml AE 250 ML IV SCH (08:10)
[2021-01-12] MEDS: cefTRIAXone 1GM/50ML D5W 50 ML IV SCH (08:18)
[2021-01-12] MEDS: CARVEDILOL 3.125 MG TAB PO SCH ×2 (09:05→22:00)
[2021-01-12] MEDS: FLORASTOR (S. BOULARDII) 250 MG CAP PO SCH (09:06)
[2021-01-12] MEDS: SACUBITRIL-VALSARTAN 24mg/26mg TAB PO SCH ×2 (09:06→22:00)
[2021-01-12] MEDS: FAMOTIDINE 20 MG TAB PO SCH (09:06)
[2021-01-12] MEDS: VENLAFAXINE HCL 37.5mg XR cap PO SCH ×2 (10:13→22:16)
[2021-01-12 11:16] LABS: Alcohol, Urine < 3.0 mg/dL (0-10); Amphetamine Screen, Urine NEGATIVE (NEGATIVE); Barbiturate Scree,Urine NEGATIVE (NEGATIVE); Benzodiazephine Screen, Urine NEGATIVE (NEGATIVE); Cannabinoid Screen, Urine POSITIVE (NEGATIVE); Cocaine Screen, Urine NEGATIVE (NEGATIVE); Phencyclidine Screen, Urine NEGATIVE (NEGATIVE)
[2021-01-12 11:23] LABS: Opiate Scree,Urine NEGATIVE (NEGATIVE)
[2021-01-12] MEDS: HYDROcodone-ACET 5/325MG TAB PO PRN (13:48)
[2021-01-12] MEDS ORDERED: AMIODARONE HCL 200 MG TAB PO ONE (14:00)
[2021-01-12] MEDS ORDERED: LIDOCAINE 1% (LOCAL ANESTH.) PF 5ml SDV ID ONE (19:15)
[2021-01-12] MEDS: SODIUM CHLOR 0.9% PF (SALINE LOCK) 10ML VIAL/SYR IV SCH (22:15)
[2021-01-12] MEDS: AMIODARONE HCL 200 MG TAB PO SCH (22:15)
[2021-01-12] MEDS: MORPHINE SULFATE INJECTION 2 MG/ML SYRG IV PRN (22:35)
[2021-01-13 05:00] VITALS: BP 75/72
[2021-01-13] MEDS: CLINDAMYCIN 300MG IV 50 ML IV SCH ×3 (06:00→21:50)
[2021-01-13] MEDS: MORPHINE SULFATE INJECTION 2 MG/ML SYRG IV PRN ×2 (06:57→17:14)
[2021-01-13] MEDS ORDERED: ADENOSINE 75 MG in GIVE UN-DILUTED 0 ML IV STA (08:22)
[2021-01-13 08:57] LABS: Calcium 8.2 mg/dL (8.5-10.1); Potassium 3.7 mmol/L (3.5-5.1)
[2021-01-13 08:58] VITALS: BP 117/82
[2021-01-13 09:04] LABS: BUN/Creatinine Ratio 16.4
[2021-01-13 09:11] LABS: INR 1.07 (0.9-1.15); Partial Thromboplastin Time 30.5 sec (23.0-31.2)
[2021-01-13 09:15] LABS: Basophils # (auto) 0.1 10 ^3/uL (0-0.2); Basophils % (auto) 0.7 % (0.0-2.0); Eosinophils # (auto) 0.2 10 ^3/uL (0-0.8); Eosinophils % (auto) 1.8 % (0.0-7.0); Hematocrit 35.1 % (41.0-53.0); Lymphocytes # (auto) 1.3 10 ^3/uL (0.4-5.4); Lymphocytes % (auto) 15.1 % (10.0-50.0); Mean Corpuscular Hemoglobin 33.3 pg (28.0-32.0); Mean Corpuscular Hgb Conc. 34.3 g/dL (32.0-36.0); Mean Corpuscular Volume 97.1 fL (80.0-100.0); Monocytes # (auto) 1.2 10 ^3/uL (0-1.3); Monocytes % (auto) 14.1 % (0.0-12.0); Neutrophils # (auto) 5.8 10 ^3/uL (1.6-8.6); Neutrophils % (auto) 68.3 % (37.0-80.0); Red Blood Cells 3.62 10^6/uL (4.5-5.90); Red Cell Distribution Width 13.2 % (11.8-14.3); White Blood Cell 8.5 10^3/uL (4.4-10.8)
[2021-01-13] MEDS: FAMOTIDINE 20 MG TAB PO SCH (10:00)
[2021-01-13] MEDS: SODIUM CHLOR 0.9% PF (SALINE LOCK) 10ML VIAL/SYR IV SCH ×2 (12:17→21:50)
[2021-01-13] MEDS: cefTRIAXone 1GM/50ML D5W 50 ML IV SCH (12:17)
[2021-01-13] MEDS: AMIODARONE HCL 200 MG TAB PO SCH ×2 (12:18→21:50)
[2021-01-13] MEDS: CARVEDILOL 3.125 MG TAB PO SCH ×2 (12:18→21:51)
[2021-01-13] MEDS: FLORASTOR (S. BOULARDII) 250 MG CAP PO SCH (12:19)
[2021-01-13] MEDS: FUROSEMIDE 40 MG TAB PO SCH (12:19)
[2021-01-13] MEDS: VENLAFAXINE HCL 37.5mg XR cap PO SCH ×2 (12:19→21:50)
[2021-01-13] MEDS: SACUBITRIL-VALSARTAN 24mg/26mg TAB PO SCH ×2 (12:19→21:51)
[2021-01-13] MEDS: ENOXAPARIN SOD 40 MG/0.4 ML SYRINGE SC SCH (12:20)
[2021-01-13 13:03] VITALS: BP 134/94
[2021-01-13 17:00] VITALS: BP 113/85
[2021-01-13 22:00] VITALS: BP 107/67
[2021-01-14] MEDS: MORPHINE SULFATE INJECTION 2 MG/ML SYRG IV PRN ×3 (04:48→20:44)
[2021-01-14 05:00] VITALS: BP 126/75
[2021-01-14] MEDS: CLINDAMYCIN 300MG IV 50 ML IV SCH ×3 (06:19→22:33)
[2021-01-14] MEDS: HYDROcodone-ACET 5/325MG TAB PO PRN (07:59)
[2021-01-14 09:00] VITALS: BP 115/71
[2021-01-14] MEDS: AMIODARONE HCL 200 MG TAB PO SCH ×2 (09:05→22:33)
[2021-01-14] MEDS: SACUBITRIL-VALSARTAN 24mg/26mg TAB PO SCH ×2 (09:05→22:32)
[2021-01-14] MEDS: cefTRIAXone 1GM/50ML D5W 50 ML IV SCH (09:05)
[2021-01-14] MEDS: FAMOTIDINE 20 MG TAB PO SCH (09:05)
[2021-01-14] MEDS: ENOXAPARIN SOD 40 MG/0.4 ML SYRINGE SC SCH (09:06)
[2021-01-14] MEDS: CARVEDILOL 3.125 MG TAB PO SCH ×2 (09:06→22:33)
[2021-01-14] MEDS: FUROSEMIDE 40 MG TAB PO SCH (09:06)
[2021-01-14] MEDS: FLORASTOR (S. BOULARDII) 250 MG CAP PO SCH (09:06)
[2021-01-14] MEDS: VENLAFAXINE HCL 37.5mg XR cap PO SCH ×2 (09:06→22:33)
[2021-01-14] MEDS: SODIUM CHLOR 0.9% PF (SALINE LOCK) 10ML VIAL/SYR IV SCH ×2 (09:07→22:21)
[2021-01-14 13:00] VITALS: BP 105/56
[2021-01-14 16:57] VITALS: BP 101/59
[2021-01-14 22:00] VITALS: BP 114/75
[2021-01-15] VITALS (9 sets, daily range): BP systolic 100–123; BP diastolic 55–78
[2021-01-15] MEDS: CLINDAMYCIN 300MG IV 50 ML IV SCH ×3 (06:12→23:03)
[2021-01-15 06:22] LABS: Urine Bacteria NONE SEEN /hpf (None Seen); Urine Blood Negative /uL (Negative); Urine Specific Gravity 1.011 (1.001-1.035); Urine WBC 1 /hpf (0 - 3)
[2021-01-15 06:59] LABS: Basophils # (auto) 0.1 10 ^3/uL (0-0.2); Basophils % (auto) 0.9 % (0.0-2.0); Eosinophils # (auto) 0.2 10 ^3/uL (0-0.8); Eosinophils % (auto) 2.5 % (0.0-7.0); Hematocrit 37.5 % (41.0-53.0); Hemoglobin 12.8 g/dL (13.5-17.5); Lymphocytes # (auto) 1.4 10 ^3/uL (0.4-5.4); Lymphocytes % (auto) 19.1 % (10.0-50.0); Mean Corpuscular Volume 96.9 fL (80.0-100.0); Monocytes # (auto) 1.1 10 ^3/uL (0-1.3); Monocytes % (auto) 14.9 % (0.0-12.0); Neutrophils # (auto) 4.7 10 ^3/uL (1.6-8.6); Neutrophils % (auto) 62.6 % (37.0-80.0); Nucleated Red Blood Cells % 0.1 %; Red Blood Cells 3.87 10^6/uL (4.5-5.90); Red Cell Distribution Width 13.1 % (11.8-14.3); White Blood Cell 7.5 10^3/uL (4.4-10.8)
[2021-01-15 07:12] LABS: INR 1.06 (0.9-1.15)
[2021-01-15 07:20] LABS: BUN/Creatinine Ratio 15.7; Calcium 8.8 mg/dL (8.5-10.1); Potassium 3.9 mmol/L (3.5-5.1)
[2021-01-15] MEDS ORDERED: IOHEXOL 350 MG/ML 100ML IJ ONE (07:55)
[2021-01-15] MEDS ORDERED: LIDOCAINE 2%HCL (LOCAL ANESTH.) INJ 20ML MDV ONE (07:55)
[2021-01-15] MEDS: ENOXAPARIN SOD 40 MG/0.4 ML SYRINGE SC SCH (08:07)
[2021-01-15] MEDS ORDERED: fentaNYL CITRATE 100 MCG/2 ML VL ONE (08:14)
[2021-01-15] MEDS ORDERED: HEPARIN SODIUM (PORCINE) 5000 UNITS/ML 1ML VIAL ONE (08:14)
[2021-01-15] MEDS ORDERED: ANGIOMAX 250 MG VIAL IV ONE (08:14)
[2021-01-15] MEDS ORDERED: VERAPAMIL 2.5MG/ML INJ 2ML VIAL IV ONE (08:14)
[2021-01-15] MEDS ORDERED: SODIUM CHL 0.9% 0 ML ONE (08:15)
[2021-01-15] MEDS ORDERED: MIDAZOLAM HCL 2MG/2ML 2ml VIAL (1mg/ml) ONE (08:15)
[2021-01-15] MEDS: FAMOTIDINE 20 MG TAB PO SCH ×2 (10:00→10:22)
[2021-01-15] MEDS: cefTRIAXone 1GM/50ML D5W 50 ML IV SCH (10:22)
[2021-01-15] MEDS: FUROSEMIDE 40 MG TAB PO SCH (10:22)
[2021-01-15] MEDS: VENLAFAXINE HCL 37.5mg XR cap PO SCH ×2 (10:22→23:04)
[2021-01-15] MEDS: CARVEDILOL 3.125 MG TAB PO SCH ×2 (10:23→23:04)
[2021-01-15] MEDS: SACUBITRIL-VALSARTAN 24mg/26mg TAB PO SCH ×2 (10:23→23:05)
[2021-01-15] MEDS: FLORASTOR (S. BOULARDII) 250 MG CAP PO SCH (10:23)
[2021-01-15] MEDS: AMIODARONE HCL 200 MG TAB PO SCH ×2 (10:23→23:04)
[2021-01-15] MEDS: MORPHINE SULFATE INJECTION 2 MG/ML SYRG IV PRN ×2 (11:03→18:00)
[2021-01-15] MEDS: SODIUM CHLOR 0.9% PF (SALINE LOCK) 10ML VIAL/SYR IV SCH ×2 (14:43→22:00)
[2021-01-16] MEDS: MORPHINE SULFATE INJECTION 2 MG/ML SYRG IV PRN ×4 (00:05→21:51)
[2021-01-16] MEDS: HYDROcodone-ACET 5/325MG TAB PO PRN ×3 (03:56→17:22)
[2021-01-16 05:29] VITALS: BP 121/66
[2021-01-16] MEDS: SODIUM CHLOR 0.9% PF (SALINE LOCK) 10ML VIAL/SYR IV SCH ×3 (06:00→22:15)
[2021-01-16] MEDS: CLINDAMYCIN 300MG IV 50 ML IV SCH ×3 (06:56→21:51)
[2021-01-16 08:37] VITALS: BP 125/74
[2021-01-16] MEDS: cefTRIAXone 1GM/50ML D5W 50 ML IV SCH (09:06)
[2021-01-16] MEDS: FLORASTOR (S. BOULARDII) 250 MG CAP PO SCH (09:07)
[2021-01-16] MEDS: CARVEDILOL 3.125 MG TAB PO SCH ×2 (09:07→23:30)
[2021-01-16] MEDS: AMIODARONE HCL 200 MG TAB PO SCH ×2 (09:07→21:52)
[2021-01-16] MEDS: VENLAFAXINE HCL 37.5mg XR cap PO SCH ×2 (09:07→21:52)
[2021-01-16] MEDS: ENOXAPARIN SOD 40 MG/0.4 ML SYRINGE SC SCH (09:07)
[2021-01-16] MEDS: FUROSEMIDE 40 MG TAB PO SCH (09:08)
[2021-01-16] MEDS: SACUBITRIL-VALSARTAN 24mg/26mg TAB PO SCH ×2 (09:08→21:55)
[2021-01-16] MEDS: FAMOTIDINE 20 MG TAB PO SCH (09:08)
[2021-01-16 13:19] VITALS: BP 106/73
[2021-01-16 16:50] VITALS: BP 91/51
[2021-01-16 22:00] VITALS: BP 103/64
[2021-01-17] MEDS: HYDROcodone-ACET 5/325MG TAB PO PRN ×3 (01:57→17:19)
[2021-01-17 05:00] VITALS: BP 106/71
[2021-01-17] MEDS: MORPHINE SULFATE INJECTION 2 MG/ML SYRG IV PRN ×3 (05:31→20:23)
[2021-01-17] MEDS: SODIUM CHLOR 0.9% PF (SALINE LOCK) 10ML VIAL/SYR IV SCH ×3 (05:32→22:23)
[2021-01-17] MEDS: CLINDAMYCIN 300MG IV 50 ML IV SCH ×3 (05:32→22:23)
[2021-01-17] MEDS: cefTRIAXone 1GM/50ML D5W 50 ML IV SCH (08:48)
[2021-01-17 09:00] VITALS: BP 130/66
[2021-01-17] MEDS: AMIODARONE HCL 200 MG TAB PO SCH ×2 (09:46→22:22)
[2021-01-17] MEDS: FLORASTOR (S. BOULARDII) 250 MG CAP PO SCH (09:46)
[2021-01-17] MEDS: FUROSEMIDE 40 MG TAB PO SCH (09:46)
[2021-01-17] MEDS: CARVEDILOL 3.125 MG TAB PO SCH ×2 (09:47→22:23)
[2021-01-17] MEDS: SACUBITRIL-VALSARTAN 24mg/26mg TAB PO SCH ×2 (09:47→22:24)
[2021-01-17] MEDS: ENOXAPARIN SOD 40 MG/0.4 ML SYRINGE SC SCH (09:47)
[2021-01-17] MEDS: FAMOTIDINE 20 MG TAB PO SCH (09:47)
[2021-01-17] MEDS: VENLAFAXINE HCL 37.5mg XR cap PO SCH ×2 (09:47→22:26)
[2021-01-17 22:00] VITALS: BP_SYST 106; BP_SYST 118; BP_DIAS 73; BP_DIAS 75
[2021-01-18] MEDS: HYDROcodone-ACET 5/325MG TAB PO PRN ×3 (00:20→13:10)
[2021-01-18] MEDS: MORPHINE SULFATE INJECTION 2 MG/ML SYRG IV PRN ×5 (02:30→22:22)
[2021-01-18 05:00] VITALS: BP 118/73
[2021-01-18] MEDS: SODIUM CHLOR 0.9% PF (SALINE LOCK) 10ML VIAL/SYR IV SCH ×3 (06:00→22:20)
[2021-01-18] MEDS: CLINDAMYCIN 300MG IV 50 ML IV SCH ×3 (06:32→22:20)
[2021-01-18] MEDS: FUROSEMIDE 40 MG TAB PO SCH (08:56)
[2021-01-18] MEDS: SACUBITRIL-VALSARTAN 24mg/26mg TAB PO SCH ×2 (08:56→22:23)
[2021-01-18] MEDS: FAMOTIDINE 20 MG TAB PO SCH (08:56)
[2021-01-18] MEDS: FLORASTOR (S. BOULARDII) 250 MG CAP PO SCH (08:56)
[2021-01-18] MEDS: CARVEDILOL 3.125 MG TAB PO SCH ×2 (08:57→22:20)
[2021-01-18] MEDS: VENLAFAXINE HCL 37.5mg XR cap PO SCH ×2 (08:58→22:21)
[2021-01-18] MEDS: ENOXAPARIN SOD 40 MG/0.4 ML SYRINGE SC SCH (08:58)
[2021-01-18] MEDS: cefTRIAXone 1GM/50ML D5W 50 ML IV SCH (08:58)
[2021-01-18] MEDS: AMIODARONE HCL 200 MG TAB PO SCH ×2 (08:58→22:20)
[2021-01-18 09:00] VITALS: BP 102/69
[2021-01-18 12:43] VITALS: BP 117/72
[2021-01-18 17:00] VITALS: BP 100/69
[2021-01-18 22:00] VITALS: BP 103/65
[2021-01-19] MEDS: HYDROcodone-ACET 5/325MG TAB PO PRN ×4 (01:53→23:48)
[2021-01-19 05:00] VITALS: BP 113/71
[2021-01-19] MEDS: SODIUM CHLOR 0.9% PF (SALINE LOCK) 10ML VIAL/SYR IV SCH ×3 (05:04→21:39)
[2021-01-19] MEDS: MORPHINE SULFATE INJECTION 2 MG/ML SYRG IV PRN ×3 (05:04→20:08)
[2021-01-19] MEDS: CLINDAMYCIN 300MG IV 50 ML IV SCH ×3 (05:04→21:39)
[2021-01-19 05:59] LABS: Basophils # (auto) 0.1 10 ^3/uL (0-0.2); Basophils % (auto) 1.1 % (0.0-2.0); Eosinophils # (auto) 0.2 10 ^3/uL (0-0.8); Eosinophils % (auto) 2.5 % (0.0-7.0); Hematocrit 39.7 % (41.0-53.0); Hemoglobin 13.7 g/dL (13.5-17.5); Lymphocytes # (auto) 1.4 10 ^3/uL (0.4-5.4); Lymphocytes % (auto) 21.8 % (10.0-50.0); Mean Corpuscular Hemoglobin 33.7 pg (28.0-32.0); Mean Corpuscular Hgb Conc. 34.6 g/dL (32.0-36.0); Mean Corpuscular Volume 97.6 fL (80.0-100.0); Monocytes # (auto) 1.1 10 ^3/uL (0-1.3); Monocytes % (auto) 17.2 % (0.0-12.0); Neutrophils # (auto) 3.6 10 ^3/uL (1.6-8.6); Neutrophils % (auto) 57.4 % (37.0-80.0); Nucleated Red Blood Cells % 0.1 %; Red Blood Cells 4.07 10^6/uL (4.5-5.90); Red Cell Distribution Width 13.1 % (11.8-14.3); White Blood Cell 6.3 10^3/uL (4.4-10.8)
[2021-01-19 06:18] LABS: Calcium 9.2 mg/dL (8.5-10.1); Potassium 4.2 mmol/L (3.5-5.1)
[2021-01-19 06:22] LABS: BUN/Creatinine Ratio 23.9
[2021-01-19 09:00] VITALS: BP 115/67
[2021-01-19] MEDS: cefTRIAXone 1GM/50ML D5W 50 ML IV SCH (09:02)
[2021-01-19] MEDS: AMIODARONE HCL 200 MG TAB PO SCH ×2 (09:02→21:39)
[2021-01-19] MEDS: CARVEDILOL 3.125 MG TAB PO SCH ×2 (09:02→21:39)
[2021-01-19] MEDS: FUROSEMIDE 40 MG TAB PO SCH (09:03)
[2021-01-19] MEDS: SACUBITRIL-VALSARTAN 24mg/26mg TAB PO SCH ×2 (09:03→21:39)
[2021-01-19] MEDS: FLORASTOR (S. BOULARDII) 250 MG CAP PO SCH (09:03)
[2021-01-19] MEDS: VENLAFAXINE HCL 37.5mg XR cap PO SCH ×2 (09:03→21:39)
[2021-01-19] MEDS: FAMOTIDINE 20 MG TAB PO SCH (09:03)
[2021-01-19] MEDS: ENOXAPARIN SOD 40 MG/0.4 ML SYRINGE SC SCH (09:04)
[2021-01-19 13:00] VITALS: BP 101/68
[2021-01-19 16:29] VITALS: BP 98/59
[2021-01-19 22:00] VITALS: BP 109/84
[2021-01-20] MEDS: MORPHINE SULFATE INJECTION 2 MG/ML SYRG IV PRN ×4 (02:12→22:59)
[2021-01-20 05:00] VITALS: BP 110/65
[2021-01-20] MEDS: CLINDAMYCIN 300MG IV 50 ML IV SCH ×3 (06:12→22:11)
[2021-01-20] MEDS: SODIUM CHLOR 0.9% PF (SALINE LOCK) 10ML VIAL/SYR IV SCH ×3 (06:12→22:11)
[2021-01-20] MEDS: HYDROcodone-ACET 5/325MG TAB PO PRN ×3 (06:13→18:53)
[2021-01-20 08:00] VITALS: BP 114/84
[2021-01-20 08:42] VITALS: BP 114/84
[2021-01-20] MEDS: ENOXAPARIN SOD 40 MG/0.4 ML SYRINGE SC SCH (09:32)
[2021-01-20] MEDS: FUROSEMIDE 40 MG TAB PO SCH (09:33)
[2021-01-20] MEDS: VENLAFAXINE HCL 37.5mg XR cap PO SCH ×2 (09:34→22:12)
[2021-01-20] MEDS: FAMOTIDINE 20 MG TAB PO SCH (09:34)
[2021-01-20] MEDS: cefTRIAXone 1GM/50ML D5W 50 ML IV SCH (09:34)
[2021-01-20] MEDS: CARVEDILOL 3.125 MG TAB PO SCH ×2 (09:35→22:00)
[2021-01-20] MEDS: AMIODARONE HCL 200 MG TAB PO SCH ×2 (09:36→22:11)
[2021-01-20] MEDS: FLORASTOR (S. BOULARDII) 250 MG CAP PO SCH (09:39)
[2021-01-20] MEDS: SACUBITRIL-VALSARTAN 24mg/26mg TAB PO SCH ×2 (09:39→22:00)
[2021-01-20 13:00] VITALS: BP 101/68
[2021-01-20 16:35] VITALS: BP 96/59
[2021-01-20 22:00] VITALS: BP 97/69
[2021-01-21] MEDS: HYDROcodone-ACET 5/325MG TAB PO PRN ×3 (03:02→21:28)
[2021-01-21] MEDS: MORPHINE SULFATE INJECTION 2 MG/ML SYRG IV PRN ×3 (04:51→17:43)
[2021-01-21 05:00] VITALS: BP 118/79
[2021-01-21] MEDS: SODIUM CHLOR 0.9% PF (SALINE LOCK) 10ML VIAL/SYR IV SCH ×3 (06:30→21:25)
[2021-01-21] MEDS: CLINDAMYCIN 300MG IV 50 ML IV SCH ×3 (06:30→21:25)
[2021-01-21 08:00] VITALS: BP 125/72
[2021-01-21] MEDS: VENLAFAXINE HCL 37.5mg XR cap PO SCH ×2 (08:56→21:26)
[2021-01-21] MEDS: cefTRIAXone 1GM/50ML D5W 50 ML IV SCH (08:56)
[2021-01-21] MEDS: AMIODARONE HCL 200 MG TAB PO SCH ×2 (08:56→21:26)
[2021-01-21] MEDS: ENOXAPARIN SOD 40 MG/0.4 ML SYRINGE SC SCH (08:57)
[2021-01-21] MEDS: FAMOTIDINE 20 MG TAB PO SCH (08:57)
[2021-01-21] MEDS: FUROSEMIDE 40 MG TAB PO SCH (08:57)
[2021-01-21 09:00] VITALS: BP 125/72
[2021-01-21] MEDS: CARVEDILOL 3.125 MG TAB PO SCH ×2 (10:00→21:27)
[2021-01-21] MEDS: FLORASTOR (S. BOULARDII) 250 MG CAP PO SCH (10:12)
[2021-01-21] MEDS: SACUBITRIL-VALSARTAN 24mg/26mg TAB PO SCH ×2 (10:12→21:27)
[2021-01-21 13:00] VITALS: BP 125/81
[2021-01-21 16:06] VITALS: BP 114/56
[2021-01-21] MEDS ORDERED: HYDROcodone-ACET 5/325MG TAB PO PRN (23:45)
[2021-01-21] MEDS: HYDROcodone-ACET 10/325MG TAB PO PRN (23:57)
[2021-01-22] MEDS: HYDROcodone-ACET 10/325MG TAB PO PRN ×3 (04:11→14:02)
[2021-01-22 05:00] VITALS: BP 112/79
[2021-01-22] MEDS: SODIUM CHLOR 0.9% PF (SALINE LOCK) 10ML VIAL/SYR IV SCH ×2 (06:12→14:00)
[2021-01-22] MEDS: CLINDAMYCIN 300MG IV 50 ML IV SCH ×2 (06:12→14:01)
[2021-01-22] MEDS: cefTRIAXone 1GM/50ML D5W 50 ML IV SCH (08:51)
[2021-01-22 09:00] VITALS: BP 100/70
[2021-01-22] MEDS: AMIODARONE HCL 200 MG TAB PO SCH (10:00)
[2021-01-22] MEDS: SACUBITRIL-VALSARTAN 24mg/26mg TAB PO SCH (10:00)
[2021-01-22] MEDS: CARVEDILOL 3.125 MG TAB PO SCH (10:00)
[2021-01-22] MEDS: FUROSEMIDE 40 MG TAB PO SCH (10:22)
[2021-01-22] MEDS: FLORASTOR (S. BOULARDII) 250 MG CAP PO SCH (10:22)
[2021-01-22] MEDS: VENLAFAXINE HCL 37.5mg XR cap PO SCH (10:22)
[2021-01-22] MEDS: FAMOTIDINE 20 MG TAB PO SCH (10:23)
[2021-01-22] MEDS: ENOXAPARIN SOD 40 MG/0.4 ML SYRINGE SC SCH (10:23)
[2021-01-22 13:00] VITALS: BP 134/73
[2021-01-22 15:50] VITALS: BP 133/73
== END 2021-01-22 16:14 | disposition short-term general hospital (02) | DRG 871 ==
LOC: ER 21:46 → TELE 21:47 → ICU WEST 01-11 15:44 → TELE-E-ADS 01-12 15:35 → DOU IN ADS 01-13 02:47 → EAST 01-15 01:15 → TELE-E-ADS 01-15 01:27 → TELE-WESTW 01-15 16:51
PROVIDERS: ADMIT Nurse Practitioner Acute Care; ATTEND Internal Medicine Geriatric Medicine
PROC: 02HV33Z Insertion of Infusion Device into Superior Vena Cava, Percutaneous Approach (ICD-10-PCS; 2021-01-12)
PROC: B2111ZZ Fluoroscopy of Multiple Coronary Arteries using Low Osmolar Contrast (ICD-10-PCS; principal; 2021-01-15)
PROC: 4A023N7 Measurement of Cardiac Sampling and Pressure, Left Heart, Percutaneous Approach (ICD-10-PCS; 2021-01-15)
PROC: B2151ZZ Fluoroscopy of Left Heart using Low Osmolar Contrast (ICD-10-PCS; 2021-01-15)
PROC: 5A2204Z Restoration of Cardiac Rhythm, Single (ICD-10-PCS; 2021-01-15)
DX: A41.9 Sepsis, unspecified organism (principal); G82.54 Quadriplegia, C5-C7 incomplete; J18.9 Pneumonia, unspecified organism; I49.01 Ventricular fibrillation; N39.0 Urinary tract infection, site not specified; L03.116 Cellulitis of left lower limb; L03.115 Cellulitis of right lower limb; I50.22 Chronic systolic (congestive) heart failure; I47.2 Ventricular tachycardia; I97.790 Other intraoperative cardiac functional disturbances during cardiac surgery; E66.9 Obesity, unspecified; E88.09 Other disorders of plasma-protein metabolism, not elsewhere classified; F17.210 Nicotine dependence, cigarettes, uncomplicated; I11.0 Hypertensive heart disease with heart failure; Z82.49 Family history of ischemic heart disease and other diseases of the circulatory system; Z91.81 History of falling; Z99.3 Dependence on wheelchair; Z20.822 Contact with and (suspected) exposure to COVID-19; Z68.28 Body mass index [BMI] 28.0-28.9, adult; W18.39XA Other fall on same level, initial encounter; Y93.89 Activity, other specified; Y92.89 Other specified places as the place of occurrence of the external cause; Y99.8 Other external cause status
CPT/HCPCS: 36415; 36569; 71045; 78452; 80048; 80053; 80061; 80307; 81001; 82962; 83605; 83735; 83880; 84443; 84484; 85025; 85610; 85730; 87040; 87081; 87086; 87088; 87186; 87426; 93005; 93017; 93306; 93458; 93970; 96361; 96365; 96366; 96367; 97110; 97116; 97163; 97530; 99152; G0378; J0153; J0696; J2250; J2543; J3490; J7060

== ENCOUNTER 2021-02-14 20:08 | Emergency (ER) | payer OTHER ==
[~2021-02-14] VITALS: Ht 175.3 cm; Wt 90.7 kg
[~2021-02-14 20:08] MED LIST changes: +ATOR20TA50 PO; +BACL10TA PO; -SPIR25TA8 PO
[2021-02-14 21:42] LABS: Basophils # (auto) 0.1 10 ^3/uL (0-0.2); Eosinophils # (auto) 0.4 10 ^3/uL (0-0.8); Eosinophils % (auto) 4.2 % (0.0-7.0); Hemoglobin 14.4 g/dL (13.5-17.5); Lymphocytes # (auto) 1.9 10 ^3/uL (0.4-5.4); Lymphocytes % (auto) 21.7 % (10.0-50.0); Mean Corpuscular Hemoglobin 33.3 pg (28.0-32.0); Mean Corpuscular Hgb Conc. 34.2 g/dL (32.0-36.0); Mean Corpuscular Volume 97.2 fL (80.0-100.0); Monocytes # (auto) 0.8 10 ^3/uL (0-1.3); Monocytes % (auto) 8.5 % (0.0-12.0); Neutrophils # (auto) 5.8 10 ^3/uL (1.6-8.6); Neutrophils % (auto) 64.6 % (37.0-80.0); Nucleated Red Blood Cells % 0.2 %; Platelet Count (auto) 268 10^3/uL (140-450); Red Blood Cells 4.32 10^6/uL (4.5-5.90); Red Cell Distribution Width 13.2 % (11.8-14.3); White Blood Cell 8.9 10^3/uL (4.4-10.8)
[2021-02-14 21:59] LABS: Salicylate 2.7 mg/dL (2.8-20.0)
[2021-02-14 22:01] LABS: Albumin 3.5 g/dL (3.4-5.0); BUN/Creatinine Ratio 18.8; Calcium 8.9 mg/dL (8.5-10.1); Magnesium 2.5 mg/dL (1.6-2.6); Potassium 3.7 mmol/L (3.5-5.1)
[2021-02-14 22:03] LABS: Acetaminophen < 2.0 ug/mL (10-30)
[2021-02-14 22:04] LABS: Bilirubin, Total 0.3 mg/dL (0.2-1.0); Total Protein 8.1 g/dL (6.4-8.2)
[2021-02-14 23:39] LABS: Urine Bacteria NONE SEEN /hpf (None Seen); Urine Blood TRACE /uL (Negative); Urine Specific Gravity 1.008 (1.001-1.035); Urine WBC 1 /hpf (0 - 3)
[2021-02-14 23:48] LABS: Amphetamine Screen, Urine NEGATIVE (NEGATIVE); Barbiturate Scree,Urine NEGATIVE (NEGATIVE); Cannabinoid Screen, Urine POSITIVE (NEGATIVE); Cocaine Screen, Urine NEGATIVE (NEGATIVE); Opiate Scree,Urine NEGATIVE (NEGATIVE); Phencyclidine Screen, Urine NEGATIVE (NEGATIVE)
[2021-02-15 00:05] LABS: Benzodiazephine Screen, Urine NEGATIVE (NEGATIVE)
[2021-02-15] MEDS ORDERED: THIAMINE 100mg/ml INJ (200mg/2ml VIAL) ONE (10:14)
[2021-02-15] MEDS ORDERED: THIAMINE 100mg/ml INJ (200mg/2ml VIAL) IV ONE (10:15)
[2021-02-15] MEDS ORDERED: SODIUM CHLORIDE 0.9% 1,000 ML IV ONE (10:15)
[2021-02-15] MEDS ORDERED: HYDROcodone-ACET 10/325MG TAB PO ONE (18:45)
[2021-02-16 10:48] VITALS: BP 132/82
== END 2021-02-16 10:56 | disposition short-term general hospital (02) ==
LOC: EDBD 20:08 → ER 20:13
DX: F10.129 Alcohol abuse with intoxication, unspecified (principal); S42.492D Other displaced fracture of lower end of left humerus, subsequent encounter for fracture with routine healing; R51.9 Headache, unspecified; M54.2 Cervicalgia; I11.0 Hypertensive heart disease with heart failure; I50.9 Heart failure, unspecified; F17.210 Nicotine dependence, cigarettes, uncomplicated; Z20.822 Contact with and (suspected) exposure to COVID-19; W18.39XD Other fall on same level, subsequent encounter
CPT/HCPCS: 36415; 70450; 72125; 72128; 73030; 80053; 80307; 80320; 80329; 81001; 83735; 85025; 87426; 93005; 96361; 96374; 99285; C9803; J3411; J7030; U0003